=== PATIENT | male | born 1955 | race Caucasian/White ===

== ENCOUNTER 2020-04-23 07:48 | Day surgery (SDC) | payer OTHER, SELFPAY ==
[2020-04-19 14:04] VITALS: BMI 21.1
--- NOTE | 2020-04-21 10:21 | HO.ANESPROP2 ---
Documented by User: Alina Kim 04/21/20 10:28 HPI - Anesthesia Eval Consult details Narrative: 64 yo M for Colonoscopy PMFSH Past Medical History Medical History Anesthesia complication Bruises easily Cancer CLL (chronic lymphocytic leukemia) Lab test negative for COVID-19 virus Thyroid disease Surgical History Surgical History H/O inguinal hernia repair Hx of colonoscopy Hx of lumbar discectomy Social History Social History Smoking Status: Never smoker Use of substances other than those prescribed or required for medical reasons: No Have you been hit, kicked, punched, or otherwise hurt by someone within the past year? If so, by whom?: No Advance Directives Information Provided: No Recently lost weight without trying: No Meds Allergies Allergy/AdvReac Type Severity Reaction Status Date / Time No Known Allergies Allergy Verified 04/19/20 14:24 Home Medications Medication Instructions Recorded Confirmed Type ibrutinib 420 mg PO DAILY 04/19/20 04/19/20 History levothyroxine 100 mcg PO DAILY 04/19/20 04/19/20 History Exam Exam Date and Time: April 21, 2020 1021 Height,Weight and Vital Signs: Height 6 ft 1 in Weight 72.575 kg Assessment and Plan Assessment Anesthesia Assessment: Chart Reviewed (04/21/20 ) Documented by User: Maximino Hsu 04/23/20 09:34 PMFSH Past Medical History Medical History Anesthesia complication Bruises easily Cancer CLL (chronic lymphocytic leukemia) Lab test negative for COVID-19 virus Thyroid disease Surgical History Surgical History H/O inguinal hernia repair Hx of colonoscopy Hx of lumbar discectomy Social History Social History (Reviewed 04/23/20 @ 09:20 by Maximino Dc Smoking Status: Never smoker Use of substances other than those prescribed or required for medical reasons: No Have you been hit, kicked, punched, or otherwise hurt by someone within the past year? If so, by whom?: No Advance Directives Information Provided: No Recently lost weight without trying: No Meds Allergies Allergy/AdvReac Type Severity Reaction Status Date / Time No Known Allergies Allergy Verified 04/19/20 14:24 Home Medications Medication Instructions Recorded Confirmed Type ibrutinib 420 mg PO DAILY 04/19/20 04/19/20 History levothyroxine 100 mcg PO DAILY 04/19/20 04/19/20 History Exam Airway Mallampati Class: II TM Dist: >3cm Loose/Missing/Broken Teeth: No Heart: [id number] Lungs: cta b/l Assessment and Plan Assessment Anesthesia Assessment: Anesthesia Plan Discussed, Consent Obtained, PAT Visit and Chart Reviewed Final Anesthetic Review NPO: Yes Intake Type: Clears Intake Timing: Greater than 8 hours and Solids Intake Timing: Greater than 8 hours ASA Class: II Final Preanesthetic Review: No Changes in Pt Med Stat, Meds & Allergies Reviewed, Consent Obtained/Reviewed, Med/Surg/Anes Hx Reviewed and Anes Risks/Benef Reviewed Patient Risk: Low Procedure Risk: Low Anesthetic Plan Anesthetic Plan: MAC: Disposition: Standard PACU
[2020-04-23 08:01] VITALS: BP 121/80; PULSE 84; RESP 16; TEMP 36.2; O2SAT 99; BMI 21.1
[2020-04-23 10:16] VITALS: BP 103/66; PULSE 72; RESP 16; TEMP 36.4; O2SAT 97
[2020-04-23 10:31] VITALS: BP 101/77; PULSE 75; RESP 16; O2SAT 98
--- NOTE | 2020-04-23 10:39 | PM.OP ---
Brief Operative Note Date of procedure: 04/23/20 Pre-op diagnosis: Screening Post-op diagnosis: other (Diverticulosis, Internal Hemorrhoids) Procedure: Colonoscopy to the cecum Anesthesia: MAC Surgeon: Aleksandar Bartholomew Pathology: none sent Condition: stable Disposition: PACU
--- NOTE | 2020-04-23 12:04 | OP_ITS ---
SURGEON: Aleksandar Bartholomew MD INDICATIONS: The patient presents for evaluation of colorectal cancer screening. Full consent has been obtained from him for this, including risks of bleeding and perforation. PREOPERATIVE DIAGNOSIS: Colorectal cancer screening. POSTOPERATIVE DIAGNOSIS: PROCEDURE PERFORMED: Colonoscopy to cecum. ESTIMATED BLOOD LOSS: COMPLICATIONS: ANESTHESIA: Monitored anesthesia care. ASSISTANTS: SPECIMENS: POSTOPERATIVE DIAGNOSES: Colorectal cancer screening, sigmoid diverticulosis, and internal hemorrhoids. DESCRIPTION OF PROCEDURE: The patient was placed in the left lateral decubitus position. The digital rectal exam revealed no abnormalities. The Olympus video pediatric colonoscope was entered into the rectum and advanced easily to the cecum. Once in the cecum, I did identify normal-appearing cecal pouch with appendiceal orifice and a normal-appearing ileocecal valve. The entire cecum appeared normal. There was transillumination of light deep in the right lower quadrant. The scope was slowly withdrawn assessing all mucosal surfaces carefully. Preparation was excellent. I did not visualize any sign of polyps, colitis, nor angiodysplasia. There was a mild amount of sigmoid diverticulosis. In the rectum, scope was retroflexed visualizing internal hemorrhoids, but no other pathology. The rectal mucosa appeared normal. The scope was straightened out and withdrawn from the patient. He tolerated procedure well and was returned to the recovery area in stable condition. IMPRESSION: 1. Sigmoid diverticulosis. 2. Internal hemorrhoids. PLAN: Given the patient's negative exam, I would recommend a followup colonoscopy in 10 years for further screening. He will otherwise see me on a p.r.n. basis. MD LOUIS Singh/MARLAL / [phone]
== END 2020-04-23 11:11 | disposition home or self-care (01) ==
PROVIDERS: Internal Medicine; PCP Internal Medicine; Visit Provider Nurse Anesthetist, Certified Registered
PROC: 0DJD8ZZ Inspection of Lower Intestinal Tract, Via Natural or Artificial Opening Endoscopic (ICD-10-PCS; CPT 45378; principal; 2020-04-23 09:20)
DX: Z12.11 Encounter for screening for malignant neoplasm of colon (principal); K57.30 Diverticulosis of large intestine without perforation or abscess without bleeding; K64.8 Other hemorrhoids; C91.11 Chronic lymphocytic leukemia of B-cell type in remission; E03.9 Hypothyroidism, unspecified; R23.3 Spontaneous ecchymoses; Z79.899 Other long term (current) drug therapy
CPT/HCPCS: 45378